=== PATIENT | male | born 1935 | race African-American/Black ===

== ENCOUNTER → 2018-03-05 | Outpatient (CLI) | payer OTHER, BC ==
[~2018-03-05] MED LIST: BETIMOL10 ML; CARVEDILOL3.125 MG PO; CO Q-1010 MG; COLACE100 MG PO; COQ-10100 MG; COREG PO; COUMADIN 2 MG TA2 M1 PO; COUMADIN 2.5MG2.5 M1 PO; DOXYCYCLINE 10100 MG PO; KEFLEX500 MG PO; LISINOPRIL5 MG PO; NEXIUM40 MG; NEXIUM40 MG PO; OMEGA-3 FISH1000 MG PO; OMEGA-31000 M1 PO; PERCOCET 5-3251 EACH PO; PLAVIX 75 MG TA75 MG PO; PRAVASTATIN SOD40 MG PO; SIMVASTATIN40 MG PO; TESSALON PERLE100 MG PO; TIMOLOL; ULTRAM 50MG TAB50 MG PO
== END ==
LOC: NUC 07:43
DX: I25.10 Atherosclerotic heart disease of native coronary artery without angina pectoris (principal); I25.5 Ischemic cardiomyopathy; E78.5 Hyperlipidemia, unspecified; I48.91 Unspecified atrial fibrillation

== ENCOUNTER 2020-10-14 12:30 | Inpatient (IN) | payer OTHER, BC ==
[~2020-10-14] VITALS: Ht 180.3 cm; Wt 71.6 kg
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
[2020-10-14 12:33] VITALS: BP 197/82
[2020-10-14 13:16] LABS: ABSOLUTE NEUTROPHILS 3.9 thou/uL (1.4-8.2); BASOPHILS 0.6 % (0.0-2.0); HEMATOCRIT 44.9 % (42.0-52.0); HEMOGLOBIN 14.8 gm/dL (14.0-18.0); LYMPHOCYTES 17.6 % (24.0-44.0); MCH 31.2 pg (26.0-34.0); MCHC 32.9 g/dL (28.0-37.0); MCV 94.8 fL (80.0-100.0); MONOCYTES 8.3 % (1.0-8.0); PLATELET COUNT 168 thou/uL (150-400); POLYS 72.5 % (36.0-66.0); RBC 4.73 mil/uL (4.50-6.00); WBC 5.4 thou/uL (4.0-11.0)
[2020-10-14 13:32] LABS: URINE BILIRUBIN NEGATIVE (Negative); URINE BLOOD TRACE (Negative); URINE CLARITY CLEAR; URINE COLOR YELLOW; URINE GLUCOSE-RANDOM* NEGATIVE (Negative); URINE KETONES NEGATIVE (Negative); URINE LEUKOCYTES-REFLEX NEGATIVE (Negative); URINE NITRITE-REFLEX NEGATIVE (Negative); URINE PROTEIN (DIPSTICK) NEGATIVE (Negative); URINE SPECIFIC GRAVITY 1.025 (1.005-1.035)
[2020-10-14 13:33] LABS: CALCIUM 8.8 mg/dL (8.5-10.1); CREATININE 1.1 mg/dL (0.7-1.3); POTASSIUM 3.1 mmol/L (3.5-5.1)
[2020-10-14 13:39] LABS: ALBUMIN 3.5 g/dL (3.4-5.0); TOTAL PROTEIN 6.9 g/dL (6.4-8.2)
[2020-10-14 20:52] VITALS: BP 128/81
[2020-10-14] MEDS ORDERED: BRIMONIDINE TART5 ML EA. EYE (21:11)
[2020-10-14] MEDS ORDERED: COZAAR 25 MG TA25 M1 PO (21:11)
[2020-10-14] MEDS ORDERED: ARICEPT10 MG PO (21:12)
[2020-10-14] MEDS ORDERED: ZOCOR 10 MG TAB10 M1 PO (21:12)
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
[2020-10-14 21:44] VITALS: BP 112/74
[2020-10-14 21:54] VITALS: BP 129/69
[2020-10-15 07:19] VITALS: BP 129/69
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
--- NOTE | 2020-10-15 14:54 | NUR ---
ASSUMED CARE OF PT AT 0700 THIS MORNING. PT WAS BROUGHT UP FROM ER AND IS VERY AGGRESSIVE TOWARDS STAFF AND FAMILY. PT HAS HX OF ALZEIMERS AND ONLY ALERT TO SELF AND OTHERWISE CONFUSED. PT IS IMPULSIVE AND IS TRYING TO GET OUT OF BED. ASSESSMENTS NOTED IN CHART AND OTHERWISE UNREMARKABLE. FALL PRECAUTIONS ARE IN PLACE, IV IN RT AC SL. CALL LIGHT AND OTHER NEEDS ARE WITHIN REACH. MEDS AND TX GIVEN NEEDED AND SCHEDULED. WILL MONITOR AND NOTE ANY CHANGES.
[2020-10-15 15:24] VITALS: BP 168/96
[2020-10-15 20:00] VITALS: BP 154/102
[2020-10-15 21:19] VITALS: BP 129/67
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
[2020-10-16 08:23] VITALS: BP 154/77
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
--- NOTE | 2020-10-16 13:12 | NUR ---
A/O X 1, Confused, forgetful. Has not been combative since the situation @ 0700. Family has been in all day which has help with his agitation. Nurse removed the restraints while family has been at bedside. Room air. Icaysha of B/BShayy Harris on tele. Right AC IV. Family has helped feed patient during meals. No pain noted at this time.
[2020-10-16 15:39] VITALS: BP 119/62
[2020-10-16 20:17] VITALS: BP 137/78
[2020-10-17 05:28] VITALS: BP 156/83
[2020-10-17 06:10] LABS: ABSOLUTE NEUTROPHILS 6.5 thou/uL (1.4-8.2); BASOPHILS 0.4 % (0.0-2.0); EOSINOPHILS 0.6 % (0.0-3.0); HEMATOCRIT 45.4 % (42.0-52.0); HEMOGLOBIN 15.6 gm/dL (14.0-18.0); LYMPHOCYTES 9.7 % (24.0-44.0); MCH 32.1 pg (26.0-34.0); MCHC 34.4 g/dL (28.0-37.0); MCV 93.5 fL (80.0-100.0); MONOCYTES 8.3 % (1.0-8.0); PLATELET COUNT 164 thou/uL (150-400); RBC 4.86 mil/uL (4.50-6.00); RDW 14.9 % (10.5-14.5)
[2020-10-17 06:27] LABS: ALBUMIN 3.2 g/dL (3.4-5.0); CALCIUM 8.6 mg/dL (8.5-10.1); TOTAL BILIRUBIN 1.4 mg/dL (0.2-1.0); TOTAL PROTEIN 6.7 g/dL (6.4-8.2)
--- NOTE | 2020-10-17 07:18 | NUR ---
PT MAKING POOR PROGRESS TOWARDS GOALS. PT FREQUENTLY ATTEMPTING TO GET OUT OF BED THROUGHOUT THE MORNING. PT AT TIMES BECOMES PHYSICALLY AGGRESSIVE TOWARDS STAFF. PT WILL RAISE A FIST OR TRY TO KICK AT STAFF WHILE ATTEMPTING TO PULL HIM BACK UP IN BED OR PUT HIS LEGS BACK INSIDE THE BED RAILS. UNABLE TO ORIENT PATIENT TO LOCATION, SITUATION OR DATE/TIME. X1 DOSE OF ATIVAN GIVEN OVER NIGHT.
[2020-10-17 07:34] VITALS: BP 147/92
[2020-10-17] MEDS ORDERED: DONEPEZIL HCL23 MG PO (10:42)
[2020-10-17] MEDS ORDERED: TRAZODONE HCL100 MG PO (10:43)
[2020-10-17] MEDS ORDERED: FLOMAX0.4 MG PO (10:43)
[2020-10-17] MEDS ORDERED: HALOPERIDOL5 MG/1 ML IM (10:44)
[2020-10-17] MEDS ORDERED: RISPERDAL 1 MG T1 MG PO (10:45)
[2020-10-17] MEDS ORDERED: LORAZEPAM 22 MG/1 ML IM (10:46)
[2020-10-17] MEDS ORDERED: PEPCID20 MG PO (10:47)
--- NOTE | 2020-10-17 13:16 | NUR ---
ASSUMED CARE OF PT AT 0700 THIS MORNING. PT IS A/OX1 AND IS CONFUSED AND COMBATIVE. PT IS IMPULSIVE AND TRIES TO GET OUT OF BED. ASSESSMENTS NOTED IN CHART. IV DC'D BY PT AND NO NEED TO REPLACE SINCE PT IS BEING XFERRED TO [facility]. PT HAS BEEN INCOHERENT WHEN ASKED QUESTIONS AND TRIES TO FIGHT WHEN TRYING TO MOVE. MEDS AND TX GIVEN NEEDED AND SCHEDULED. WILL MONITOR AND NOTE ANY CHANGES. PT IS GOING TO [facility] AND CHART BROUGHT UP.
--- NOTE | 2020-10-18 07:32 | EKG ---
[place] [address] [facility] [place] [address] ELECTROCARDIOGRAM REPORT Name: NEYDA ALVAREZ Room #: 436-P [facility] IN M.R.#: [id number] Admission: 10/14/20 Attend Phys: Raymond De La Cruz DO Discharge: 10/17/20 Date of : 35 Report #: [id number] [facility] ED Test Date: 2020-10-14 Test Time: 13:17:52 Pat Name: NEYDA ALVAREZ Department: Room: 436 Gender: M Control Cabinet Assembler: miryam : 1935 Requested By: Tony Hinkle Order Number: [id number] MD: Kaushik Mason Measurements Intervals [place] Rate: 61 P: 0 LA: 63 QRS: -76 QRSD: 193 T: 83 QT: 509 QTc: 513 Interpretive Statements Ventricular-paced rhythm No further analysis attempted due to paced rhythm Compared to ECG 02/07/2014 22:37:59 Sinus rhythm no longer present Electronically Signed On 10-18-2020 7:32:32 CDT by Kaushik Mason [email or web address] <ELECTRONICALLY SIGNED> By: Kaushik Mason MD, [facility] 10/18/20 0732 16 16 Kaushik Mason MD, FACC /EPI
== END 2020-10-17 13:57 | DRG 884 ==
LOC: ER 12:30 → EROBS 15:05 → 4S 21:29
PROVIDERS: Emergency Medicine; ADMIT Internal Medicine; ATTEND Internal Medicine
DX: F01.51 Vascular dementia, unspecified severity, with behavioral disturbance (principal); N40.0 Benign prostatic hyperplasia without lower urinary tract symptoms; K21.9 Gastro-esophageal reflux disease without esophagitis; I10 Essential (primary) hypertension; E78.5 Hyperlipidemia, unspecified; I25.5 Ischemic cardiomyopathy; M51.36 Other intervertebral disc degeneration, lumbar region; Z66 Do not resuscitate; F91.9 Conduct disorder, unspecified; I48.0 Paroxysmal atrial fibrillation; Z20.822 Contact with and (suspected) exposure to COVID-19; Z95.810 Presence of automatic (implantable) cardiac defibrillator; Z88.6 Allergy status to analgesic agent; Z95.5 Presence of coronary angioplasty implant and graft
CPT/HCPCS: 10100

== ENCOUNTER 2020-10-17 14:26 | Inpatient (IN) | payer OTHER, BC ==
[~2020-10-17] VITALS: Ht 177.8 cm; Wt 68.6 kg
[~2020-10-17 14:26] MED LIST changes: +ARICEPT10 MG PO; +BRIMONIDINE TART5 ML EA. EYE; +COZAAR 25 MG TA25 M1 PO; +DONEPEZIL HCL23 MG PO; +FLOMAX0.4 MG PO; +HALOPERIDOL5 MG/1 ML IM; +LORAZEPAM 22 MG/1 ML IM; +PEPCID20 MG PO; +RISPERDAL 1 MG T1 MG PO; +TRAZODONE HCL100 MG PO; +ZOCOR 10 MG TAB10 M1 PO
[2020-10-17 16:44] LABS: CHOLESTEROL 165 mg/dL (<200); HDL CHOLESTEROL 62 mg/dL (>40); LDL CHOLESTEROL 94 mg/dL (<100); TC:HDL 2.7 Ratio (Not establshd); TRIGLYCERIDE 48 mg/dL (<150); VLDL 10 mg/dL (<40)
[2020-10-17 16:57] VITALS: BP 170/96
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
[2020-10-17 19:37] VITALS: BP 154/95
--- NOTE | 2020-10-17 19:57 | NUR ---
Assumed care on 10/17/20 @ 1900, seated in a yeny chair in the day room, eyes closed and calm, opens eyes to voice and allows assessment, HRRR Lung sounds CTA, ABD N x 4Q. Oriented to self only. Calm and cooperative at this time, will continue to monitor for safety and comfort, chair alarm in place.
[2020-10-18 02:05] LABS: GLYCOHEMOGLOBIN (HGB A1C) 5.4 % (4.8-5.6)
[2020-10-18 09:10] VITALS: BP 113/56
--- NOTE | 2020-10-18 14:52 | NUR ---
Assumed pt care at 0700. pt was oriented, to himself. Assessments completed, vss. Denies si/hi. No c/o pain at this time. Active bowel sounds. Took meds crushed in yogurt, no difficulty noted. Ambulates with a Claudia chair. Pt is x1-2 assist with transfers. Pt dropped off DPOA paper work. Staff assisted pt with feeding. PT GET OCCASIONALLY IRRITABLE. Pt was redirected. At this time pt is in the day room. Will continue to monitor.
[2020-10-18 20:07] VITALS: BP 160/52
--- NOTE | 2020-10-19 02:11 | NUR ---
PATIENT RESTING IN ELISABET CHAIR IN DAY ROOM UPON BEGINNING OF SHIFT. PATIENT IS AWAKE AND ALERT TO SELF ONLY. PATIET IS ABLE TO SAY YES AND NO TO SIMPLE QUESTIONS. PATIENT COMPLIANT WITH MEDICATIONS AND IS COOPERATIVE AT THIS TIME. THE SHIFT PROGRESSES PATIENT BEGINS TO COUGH HEAVILY. AT THIS TIME PATENT BREATHING IS REGULAR BUT THERE IS AN AUDIBLE CRACKLED IN THE UPPSER PORTION OF THE RESPIRATORY TRACT. AT THIS TIME PATIENT DOES NOT AWAKE WITH VERBAL COMMANDS. PRESSED AGAINST PATIENTS CHEST AND HE AWAKENS. O2 SAT IS 93% AT THIS TIME. PATIENT WAS ADMINISTERED PRN MUCINEX PER PROVIDER ORDER. WHEN GETTING PATIENT IN BED PICTURE WAS TAKEN OF PATIENTS BACK. NOTED SMALL SPHERICAL SHAPED BLIMISH ON LOWER RIGHT SIDE OF BACK. NO BLEEDING NOTED AT THIS TIME. WILL CONTINUE TO MONITOR.
[2020-10-19 10:12] VITALS: BP 125/50
--- NOTE | 2020-10-19 12:10 | NUR ---
PATIENT OBSERVED ON THE FLOOR BESIDE HIS BED BY DR. SEVILLA AT ABOUT 0945HRS THIS MORNING. PATIENT ASSISTED UP IN BED BY THIS METAL ROOM DENTAL TECHNICIAN AND DR. NUNEZ, COMPLETE BODY ASSESSMENT DONE, LACERATION NOTED TO RIGHT EYEBROW, AREA CLEANED, DR. SEVILLA APPLIED TWO STERI STRIPS. FAMILY -(JULIETH ALVAREZ) NOTIFIED. DR. GARDNER NOTIFIED BY DR. SEVILLA, THIS NURSE PRESENT AT TIME OF NOTIFICATION. PATIENT REMAIN WITH INCREASE CONFUSION, NO AGITATION OR AGGRESSIVE BEHAVIOR NOTED. PATIENT IS CURRENTLY IN GERICHAIR, EATING LUNCH. PATIENT CONTINUE TO HAVE MOIST INTERMITTENT COUGH. NO SIGN OF ACUTE DISTRESS NOTED AT THIS TIME, WILL MONITOR FOR SAFETY.
--- NOTE | 2020-10-19 15:54 | NUR ---
Oliver faxed referral to the following [facility]
[2020-10-19 18:53] VITALS: BP 130/45
[2020-10-19 19:13] VITALS: BP 137/67
--- NOTE | 2020-10-19 21:49 | NUR ---
PATIENT HAS BEEN SITTING UP IN ELISABET CHAIR AT A TABLE SINCE THIS NURSE ASSUMED CARE OF PATIENT AT 1900. PATIENT IS A/OX1. HE DENIES PAIN. NO SIGNS OF SI/HI/HALLUCINATIONS. PATIENT HAS BEEN CALM AND COOPERATIVE. CHAIR ALARM IS ON AND IN PLACE. YELLOW NONSKID SOCKS ON BILATERAL FEET. PATIENT IS CURRENTLY RESTING WITH EYES CLOSED IN ELISABET RECLINER AT A TABLE. ROUTINE ROUNDS TO ASSESS SAFETY AND STATUS OF PATIENT. PATIENT HAS STERI STRIPS APPLIED TO LACERATION ABOVE RIGHT EYEBROW DRY AND INTACT. CONTINUING TO MONITOR.
[2020-10-20 07:30] VITALS: BP 144/53
[2020-10-20] MEDS ORDERED: ACETAMINOPHEN325 M1 PO (07:36)
[2020-10-20] MEDS ORDERED: RISPERDAL 1 MG T1 MG PO (07:36)
--- NOTE | 2020-10-20 09:29 | NUR ---
Alert and orientated to name only. Calm, cooperative and compliant. Denies SI/HI. Breath sounds clear. Reg HR auscultated. Color pink with brisk capillary refill and palpable peripheral pulses. Dark yellow urine and small brown, soft stool per brief. Active bowel sounds over soft, rounded abdomen. Took meds crushed in thickened orange juice. Drinking independently and took several bites of breakfast. Currently sitting in dining room with peers without s/o distress.
[2020-10-20 13:28] LABS: ABSOLUTE NEUTROPHILS 6.4 thou/uL (1.4-8.2); BASOPHILS 0.2 % (0.0-2.0); HEMATOCRIT 46.1 % (42.0-52.0); HEMOGLOBIN 15.1 gm/dL (14.0-18.0); LYMPHOCYTES 4.5 % (24.0-44.0); MCH 31.2 pg (26.0-34.0); MCHC 32.7 g/dL (28.0-37.0); MCV 95.3 fL (80.0-100.0); MONOCYTES 6.1 % (1.0-8.0); PLATELET COUNT 188 thou/uL (150-400); POLYS 89.2 % (36.0-66.0); RBC 4.83 mil/uL (4.50-6.00); RDW 14.8 % (10.5-14.5); WBC 7.1 thou/uL (4.0-11.0)
[2020-10-20 13:47] LABS: CALCIUM 9.3 mg/dL (8.5-10.1); CREATININE 1.6 mg/dL (0.7-1.3); POTASSIUM 3.9 mmol/L (3.5-5.1)
--- NOTE | 2020-10-20 16:44 | NUR ---
DOLORES and Dr. Birch participated in a phone call with the Pt's /DPOA, Maryellen and daughter in law, Tania Hodges. Update was given on skilled referrals. Family informed that Pt can be dischrged home with home health. Family expressed concerns about the Pt's behaviors. Dr. Birch went over medications that have been started to assist the Pt with behaviors. DOLORES and Dr. Birch provided education on home health services, insurance requirements for SNF, and Medicaid. DOLORES informed the family that if they wanted to seek LTC placement the Pt needed Medicaid. At this time Pt is not Medicaid pending. A referral has been sent to [facility]. Maryellen stated she has not recieved a phone call concerning Medicaid. They family was informed that if Pt returns home and begins to have uncontrolled behviors they can take him to the nearest ER for assistance and yeny psyh placement again if necessay.
--- NOTE | 2020-10-20 17:00 | NUR ---
SW sent a referral to [place] for SNF. SW team will follow up
[2020-10-20 19:43] VITALS: BP 129/53
--- NOTE | 2020-10-21 05:49 | NUR ---
10-20-20 CARE TRANSFERRED 0 OBSERVED PT SITTING IN RECLINER IN DINING ROOM. LATER PT AAOX1, VSS, RR EVEN AND NONLABORED ON RA, PT STERI STRIPS /D/I ABOVE RT EYE. PT DENIES SI/HI AND PAIN. PT WAS CALM AND COOPEATIVE AND VERY INTERACTIVE BUT NOTED LOOSE ASSOCIATION. LATER DURING CARES RECEIVED REPORT FROM AERONAUTICAL ENGINEERING PROFESSOR THAT PT FUSSY DURING CARES. PT WILL CONTINUE TO BE MONITOR PER [facility] PROTOCOL.
[2020-10-21 08:30] VITALS: BP 128/53
--- NOTE | 2020-10-21 10:07 | NUR ---
Irritable this AM with confused speech. Repeatedly stating that he is not a doctor and that staff lie. Attempting to hit and kick with assessment. Dr. De La Cruz here and attemted exam. Brought out to dining room and given orange juice which he drank. Proceeded to eat 100% of breakfast and supplement with assistance. Then he became calm and cooperative agreeing to take meds and vital signs. Alert and orientated X1. Denies SI/HI. Breath sounds clear. Reg HR auscultated. Color pink with brisk capillary refill and palpable peripheral pulses. Brief dry. Active bowel sounds over soft, rounded abdomen. Area between buttocks slightly excoriated, cleaned and zpaste applied. Steristrips above R eye dry and intact without s/o infection/drg. Very cooperative with toileting after breakfast, able to stand and bear wt independently. Currently sitting in dining room without s/o distress. Tolerated Covid swab per L nare without difficulty, sent to lab.
--- NOTE | 2020-10-21 10:55 | NUR ---
10-21-2020--11:00 AM--call to patients (Maryellen [phone]--Advised (granddaughter also front desk coordinator) patient has been retestedd for COVID and as long as he is still negative he will be moved to a medical floor so a deep cleaning can be done on the unit. If he continues to be covid negative he will be moved back to this unit and his SW will continue to attempt to find him an appropriate placement. Call returned by granddaughter, Sheryl ) to provide 's cell phone number in case she can't be reached at the above number. Maryellen----([phone]).
[2020-10-21 17:26] VITALS: BP 143/67
[2020-10-21 19:40] VITALS: BP 139/52
[2020-10-21 22:30] VITALS: BP 116/87
[2020-10-21 23:38] LABS: ABSOLUTE NEUTROPHILS 6.4 thou/uL (1.4-8.2); BASOPHILS 0.1 % (0.0-2.0); EOSINOPHILS 0.1 % (0.0-3.0); HEMATOCRIT 40.8 % (42.0-52.0); HEMOGLOBIN 13.6 gm/dL (14.0-18.0); LYMPHOCYTES 1.8 % (24.0-44.0); MCH 31.5 pg (26.0-34.0); MCHC 33.3 g/dL (28.0-37.0); MCV 94.6 fL (80.0-100.0); PLATELET COUNT 168 thou/uL (150-400); RBC 4.32 mil/uL (4.50-6.00); RDW 14.4 % (10.5-14.5); WBC 7.1 thou/uL (4.0-11.0)
[2020-10-21 23:45] LABS: CALCIUM 8.6 mg/dL (8.5-10.1); CREATININE 1.2 mg/dL (0.7-1.3); POTASSIUM 3.8 mmol/L (3.5-5.1)
--- NOTE | 2020-10-22 03:44 | NUR ---
AT ONSET OF SHIFT PT WAS RESTING IN BED. THIS SHIFT PT WAS LETHARGIC. PT WAS NOT COMBATIVE WITH CARE THIS SHIFT, AND WAS COOPERATIVE WITH MEDS, VITAL SIGNS, AND TOILETING. PT POSITIVE FOR COVID AND EXHIBITING SYMPTOMS; COUGH, ELEVATED TEMP, AND FATIGUE. PT DID NOT SPEAK MUCH THIS SHIFT. PT DID RESPOND TO QUESTIONS AND WAS MORE ALERT WHEN RECIEVING CARE. D-DIMER AT 1225 WAS ELEVATED. RN PAGED NETWORK CONTRACT MANAGER DR. FORRESTER AND RECIEVED ORDERS (PLEASE SEE ORDERS AND EMAR.) PT RECIEVED FIRST DOST OF REMDESIVIR. DEPAKOTE WAS DISCONTINUED PER DR. SEVILLA'S REQUEST. IV WAS PLACED IN PT'S LEFT FOREARM. PT DID DISCONNECT IV ONCE BY GETTING OUT OF BED, BUT IV SITE REMAINED INTACT AND IV RE-STARTED. VITAL SIGNS REMAINED STABLE THROUGHOUT NIGHT. BED WAS PLACED IN LOW POSITION WITH BED ALARM ON. ALL SIDE RAILS PLACED UP. ROUTINE ROUNDS COMPLETED. PT WEARING YELLOW NON-SLIP SOCKS. RECEIVED PRN TYLENOL FOR ELEVATED TEMPERATURE.
[2020-10-22 06:29] LABS: ABSOLUTE NEUTROPHILS 6.3 thou/uL (1.4-8.2); EOSINOPHILS 0.1 % (0.0-3.0); HEMATOCRIT 41.4 % (42.0-52.0); HEMOGLOBIN 13.6 gm/dL (14.0-18.0); LYMPHOCYTES 3.2 % (24.0-44.0); MCH 31.2 pg (26.0-34.0); MCHC 32.9 g/dL (28.0-37.0); MCV 95.1 fL (80.0-100.0); PLATELET COUNT 171 thou/uL (150-400); POLYS 89.7 % (36.0-66.0); RBC 4.36 mil/uL (4.50-6.00); RDW 15.2 % (10.5-14.5); WBC 7.1 thou/uL (4.0-11.0)
[2020-10-22 06:37] LABS: DIRECT BILIRUBIN 0.4 mg/dL (<0.1-0.2); PHOSPHORUS 3.1 mg/dL (2.5-4.9)
--- NOTE | 2020-10-22 06:38 | NUR ---
Slept 6.8 hours overnight.
[2020-10-22 06:50] LABS: ALBUMIN 2.7 g/dL (3.4-5.0); CALCIUM 8.6 mg/dL (8.5-10.1); CREATININE 1.2 mg/dL (0.7-1.3); POTASSIUM 4.6 mmol/L (3.5-5.1); TOTAL BILIRUBIN 0.7 mg/dL (0.2-1.0); TOTAL PROTEIN 5.9 g/dL (6.4-8.2)
[2020-10-22 08:02] VITALS: BP 140/70
--- NOTE | 2020-10-22 11:37 | EKG ---
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
--- NOTE | 2020-10-22 14:54 | NUR ---
RESUMMED CARE FROM OVERNIGHT SHIFT THIS AM, PATIENT ALERT TO SELF ONLY. PATIENT IS UNABLE TO TELL ME ABOUT SI/HI/AH/VH AT PRESENT DUE TO COGNITIVE DO. PATIENTS ABDOMEN SOFT BOWL SOUNDS PRESENT PATIENTS LUNGS MILD RATTLES UPPER LOBES O LUNGS. PATIENT PULLED IV OUT AND WE HAD TO REPLACE THE IV IN LEFT FOEARM. PATIENT KEEPS TRYING TO GET UP OUT OF BED SO WE HAVE TO MONITOR HIM CLOSELY. PATIENT ALERT CONFUSED ASKS ABOUT HIS AT TIMES PATIENT TAKES MEDICAION CRUSHED IN PUDDING. WILL CONINUE TO MONITOR PATIENT FOR SAFETY AND BEHAVIORS.
[2020-10-22 19:54] VITALS: BP 115/45
[2020-10-23 00:39] VITALS: BP 115/45
--- NOTE | 2020-10-23 05:03 | HC ---
[facility] [place] [address] CONSULTATION Name: NEYDA ALVAREZ Room #: 221-P [facility] IN M.R.#: [id number] Admission: 10/17/20 Attend Phys: Siri Montes De Oca MD Discharge: Date of : 35 Report #: [id number] THIS REPORT FOR: cc: Raymond De La Cruz,Marcellus Oconnor MD ~ DATE OF SERVICE: 10/22/2020 INFECTIOUS DISEASE CONSULTATION ATTENDING PHYSICIAN: Dr. Ramos. REASON FOR EVALUATION: COVID-19 infection. HISTORY OF PRESENT ILLNESS: Chart reviewed and the patient examined. This is an 85-year-old gentleman with dementia that has been complicated by behavioral disturbances and agitation. He had been in the Geriatric Psychiatry Unit. He, however, was found to be positive for coronavirus and transferred to the COVID unit. At this point, he is maintained off supplemental oxygen. Chest x-ray does show patchy bilateral interstitial opacities. D-dimer was elevated at 3.39. He was noted to have low-grade temperature elevation to 100.9, this morning 97.4. It is difficult to ascertain any details of his history due to his profound dementia. He seems not in significant pain. He was started on remdesivir. ALLERGIES: LISTED TO ASPIRIN. CURRENT MEDICATIONS: Include enoxaparin, Haldol, trazodone, famotidine, losartan, tamsulosin, guaifenesin, dorzolamide, p.r.n. analgesics, antiemetics, remdesivir. PAST MEDICAL HISTORY: As described above, also has known vasculopathy, coronary artery disease, AFib, prostatic hypertrophy. SOCIAL HISTORY: Nonsmoker. No illicit drug use. Former ethanol. FAMILY HISTORY: Noncontributory. REVIEW OF SYSTEMS: Unobtainable. PHYSICAL EXAMINATION: GENERAL: He is chronically ill appearing. He is relatively calm at this point. He does arouse. VITAL SIGNS: Temperature 97.4, pulse 62, respirations 18, blood pressure 140/70. SKIN: Warm, dry, no rashes. [facility] [address] [address] CONSULTATION Name: NEYDA ALVAREZ Room #: 221-P [facility] IN M.R.#: [id number] Admission: 10/17/20 Attend Phys: Siri Montes De Oca MD Discharge: Date of : 35 Report #: [id number] HEENT: Normocephalic. Extraocular muscles intact. NECK: Supple. LUNGS: Few scattered coarse breath sounds. HEART: Irregular, borderline bradycardic. I do not appreciate a murmur. ABDOMEN: Soft, nontender. EXTREMITIES: No cyanosis. GENITOURINARY AND RECTAL: Deferred. LABORATORY DATA: From this morning, sodium 151, potassium 4.6, chloride 113, bicarbonate is 30, anion gap of 8, BUN and creatinine 32 and 1.2. AST of 62, ALT of 47. Albumin 2.7, total protein 5.9. CBC: White count of 7.1, H and H 13.6 and 41.4, platelets of 171. D-dimer 3.39. Chest x-ray as described above. ASSESSMENT AND PLAN: COVID-19 infection, complicated by pneumonitis. At this point, he is not requiring supplemental oxygen, although he is certainly at risk for deterioration. I think it is reasonable to add corticosteroids and limit his access to p.o.'s with vitamins, which may be difficult. Continue remdesivir. We will see how he does clinically. <ELECTRONICALLY SIGNED> By: Marcellus Rojas MD 10/23/20 0503 [id number] 0815 Marcellus Rojas MD /nt
--- NOTE | 2020-10-23 06:34 | NUR ---
AT ONSET OF SHIFT PT WAS RESTING IN BED. PT WAS CALM AND COOPERATIVE WITH CARE DURING SHIFT UNTIL 0320. PT WAS COMPLIANT WITH HS MEDICATIONS AND IV MEDICATIONS. PT WAS STUCK 5 TIMES TO GET AN IV SITE. PT SLEPT DURING IV MED ADMINSTRATION. AT APPROX 0320 PT BECAME DISORGANIZED, AGITATED, THREATENING AND COMBATIVE. PT WALKED TO RESTROOM BY HIMSELF WITH STAFF ON STANDBY ASSIST. PT WASHED HIS FACE AND BRUSHED HIS TEETH, BUT THEN CLEANED THE BATHROOM INCLUDING PUTTING HIS BARE HANDS IN THE TOILET WATER. PT WAS VERBALLY THREATENING WHEN STAFF ATTEMPTED TO REDIRECT. PT THEN TORE OUT HIS IV WHILE STAFF WAS TRYING TO HELP HIM REMOVE IT. PT SWUNG AT STAFF AND TRIED TO KICK STAFF. RN ADMINISTERED IM 4MG HALDOL AT 0435. PT CONTINUED TO ESCALATE. RN CALLED PEDIATRIC LPN DR. MONDRAGON AND RECEIVED ORDERS FOR IM 1MG ATIVAN AND 25MG BENADRYL, ADMINISTERED AT 0615. STAFF ON STANDBY WITH PT. PT WAS WEARING YELLOW NON-SLIP SOCKS WHEN AMBULATING, BED WAS PLACED IN LOWEST POSITION, BED ALRM ON.
[2020-10-23 07:52] VITALS: BP 140/74
--- NOTE | 2020-10-23 14:46 | NUR ---
Alert and orientated to name only. Restless most of day with exception of approximately 1 hr. Denies SI/HI. At approximately 1230 nursing hatchery supervisor walked by and noticied pt on floor on far side of bed. Entered room and pt was sitting on floor without s/o distress. Attempted to assist him to bed several times and he repeatedly got down on floor. Repeatedly stating he did not need help and got back into bed with minimal assistance.
[2020-10-23 19:45] VITALS: BP 144/68
[2020-10-23 20:30] VITALS: BP 144/68
[2020-10-23 23:23] LABS: ABSOLUTE NEUTROPHILS 4.7 thou/uL (1.4-8.2); BASOPHILS 0.1 % (0.0-2.0); HEMATOCRIT 42.2 % (42.0-52.0); HEMOGLOBIN 14.3 gm/dL (14.0-18.0); MCH 31.9 pg (26.0-34.0); MCHC 33.9 g/dL (28.0-37.0); MCV 94.1 fL (80.0-100.0); MONOCYTES 8.2 % (1.0-8.0); PLATELET COUNT 192 thou/uL (150-400); POLYS 84.7 % (36.0-66.0); RBC 4.48 mil/uL (4.50-6.00); RDW 14.9 % (10.5-14.5); WBC 5.6 thou/uL (4.0-11.0)
[2020-10-23 23:43] LABS: ALBUMIN 2.7 g/dL (3.4-5.0); CALCIUM 8.5 mg/dL (8.5-10.1); CREATININE 0.8 mg/dL (0.7-1.3); DIRECT BILIRUBIN 0.2 mg/dL (<0.1-0.2); PHOSPHORUS 3.5 mg/dL (2.5-4.9); POTASSIUM 4.2 mmol/L (3.5-5.1); TOTAL BILIRUBIN 0.5 mg/dL (0.2-1.0); TOTAL PROTEIN 6.6 g/dL (6.4-8.2)
--- NOTE | 2020-10-24 04:12 | NUR ---
Assumed care on 10/23/20 @ 1900, seated in yeny chair with 1:1 observer at chair side. Continuously restless and trying to take IV out, repeatedly standing without regard for personal safety. Patient's 1:1 sitter has to continuously hold his hand and verbally remind him to sit down. P.O. Thorazine 25mg provided, although no noticable effect noted. IV Antiviral began @ 21:00, new order began @ 21:55 for Thorazine 25IM and [id number] IM. Administered @ 22:20. Slight effect of calming agitation. After about 45 minutes later, became drowsy and transferred to bed. Incontinent care provided. Has been in bed thru out the NOC with eyes closed but moves legs quite often. Bed in low position with bed alarm set, will continue to monitor continually with 1:1 sitter @ bedside.
[2020-10-24 12:02] VITALS: BP 155/91
--- NOTE | 2020-10-24 13:27 | NUR ---
RESUMMED CARE FROM OVENIGHT SHIFT HIS AM, PATIENT IN ROOM LYING QUIET IN BED. PATIENT CALM COOPERATIVE PATIENT HAS NOT DISPLAYED ANY BEHAVIORS AT PRESENT. PATIENTS ABDOMEN SOFT BOWEL SOUNDS PRESENT PATIENTS LUBGS CLEAR. PATIENT IS ALERT TO SELF ONLY UNABLE TO TELL ME ABOUT SI/HI/AH/VH AT PRESENT. PATIENT HAS DECLINED SINCE YESTERDAY NOT INTERACTNG WITH STAFF WILL CONINUE TO MONIOR PATIENT FOR SAFEY AND BEHAVIORS.
[2020-10-24 14:53] LABS: ABSOLUTE NEUTROPHILS 5.2 thou/uL (1.4-8.2); BASOPHILS 0.1 % (0.0-2.0); HEMATOCRIT 44.8 % (42.0-52.0); HEMOGLOBIN 14.7 gm/dL (14.0-18.0); LYMPHOCYTES 8.6 % (24.0-44.0); MCH 31.2 pg (26.0-34.0); MCHC 32.8 g/dL (28.0-37.0); MCV 95.1 fL (80.0-100.0); MONOCYTES 4.9 % (1.0-8.0); PLATELET COUNT 208 thou/uL (150-400); POLYS 86.4 % (36.0-66.0); RBC 4.71 mil/uL (4.50-6.00); RDW 14.9 % (10.5-14.5)
[2020-10-24 15:11] LABS: ALBUMIN 2.7 g/dL (3.4-5.0); DIRECT BILIRUBIN 0.2 mg/dL (<0.1-0.2); PHOSPHORUS 3.8 mg/dL (2.6-4.7); TOTAL BILIRUBIN 0.4 mg/dL (0.2-1.0)
[2020-10-24 15:32] LABS: POTASSIUM 5.4 mmol/L (3.5-5.1)
--- NOTE | 2020-10-24 21:57 | NUR ---
AT ONSET OF SHIFT PT WAS ON 1:[address] PT WAS AMBULATING IN ROOM. PT LOWERED HIMSELF TO THE GROUND. THIS WAS WITNESSED BY ROAD WORKER AND PATIENT DID NOT HIT HIS HEAD AND WAS NOT INJURED. PT WAS ASSISTED INTO BED. PT RESTED IN BED CALMLY, BUT WHEN RN ATTEMPTED CARES PT BECAME COMBATIVE. RN ATTEMPTED ADMINISTEREING PO MEDS CRUSHED IN PUDDING AND PT WOULD NOT OPEN HIS MOUTH. PT WOULD NOT OPEN HIS EYES TO RECEIVE EYE DROPS. PT WOULD NOT TALK TO RN. RN ATTEMPTED TO FLUSH IV SITE ON LEFT AC, BUT PT GRABBED RN'S HAND AND THE FLUSH WHILE CONNECTED TO THE IV AND ATTEMPTED TO PULL OUT IV. RN DISCONNECTED FLUSH AND PLACED PT'S HANDS ON HIS CHEST. PT ATTEMPTED TO GRAB AND SCRATCH RN. RN LEFT ROOM TO ALLOW PATIENT TO CALM DOWN. PT REMAINED IN BED AFTER RN LEFT. RN WAS UNABLE TO ADMINISTER ANY MEDICATION OR COMPLETE ASSESSMENT. RN HANDED OVER CARE TO OPTICAL MANUFACTURING TECHNICIAN CHERIE AT 2125.
--- NOTE | 2020-10-25 02:12 | NUR ---
10-24-20 CARE TRANSFERRED 2124 OBSERVED PT RESTING IN BED WITH EYES CLOSED. WHEN FIRST APPROACH PT GRABBED RN HAND, BUT RELEASED. PT AAOX1, VSS, RR EVEN AND NONLABORED ON RA, PT HAS IV L. FORARM C/D/I 10ML SALINE, STARTED MEDICATION PER ORDERS AT 250ML WITH A 30ML NS FLUSH. PT HAD NO DIFFICULTIES TAKING MEDICATION CRUSHED IN PUDDING.
--- NOTE | 2020-10-25 13:09 | NUR ---
HAS REQUIRED CONSTANT SUPERVISION SO FAR THIS SHIFT D/T EXTREME RESTLESSNESS,IMPULSIVITY AND REFUSAL/INABILITY TO FOLLOW VERBAL COMMANDS. GETTING UP OUT OF BED AND CHAIR MULTIPLE TIMES-AND STAGGERING IN ROOM-WEAVING AND EXTREMEMLY UNSTEADY YET WHEN ASKED TO LET STAFF ASSIST STATES WITH RAISED VOICE "IM SICK OF YOU-IM SICK OF ALL THIS SHIT AND THRE A TUBE OF BODY LOTIONAT NURSE.APPEARS TO HAVE CONSTANT MOVEMENT MOVING FEET,TAPPING FINGERS JIGGLING LEG-TALKING [id number] RAPID,OFTEN TIMES INCOHERENT
[2020-10-25 13:36] LABS: ALBUMIN 2.7 g/dL (3.4-5.0); CALCIUM 8.6 mg/dL (8.5-10.1); CREATININE 0.9 mg/dL (0.7-1.3); DIRECT BILIRUBIN 0.2 mg/dL (<0.1-0.2); PHOSPHORUS 3.3 mg/dL (2.6-4.7); TOTAL BILIRUBIN 0.4 mg/dL (0.2-1.0); TOTAL PROTEIN 6.6 g/dL (6.4-8.2)
[2020-10-25 13:40] LABS: POTASSIUM 3.9 mmol/L (3.5-5.1)
[2020-10-25 16:29] VITALS: BP 118/56
--- NOTE | 2020-10-25 18:51 | NUR ---
LATE ENTRY FOR O830-"O" RECEIVED AT 0830 FOR IV BOLUS 500CC NS WHICH WAS HUNG AT [facility] 0900-AFTER 400 CC HAD INFUSED MID PM PT BECAME AGITATED-COMBATIVE WITH STAFF AND REFUSING TO SIT IN CHAIR-PULLED IV OUT STATING "JEY HAD THAT TOO LONG-NO MORE I SAID" DR FLOWER WITH INFECTIOUS DISEASE ROUNDING ON UNIT AT TIME AND STATES HE FEELS PTDOES NOT REQUIRE ADDITIONAL IV MEDICATIONS IS HAVING NO CLINICAL SYMPTOMS AT THIS TIME AND WILL TRANSITION STERIODS TO PO IV STERIODS ARE INCREASING AGITATION,RESTLESNESS AND ARE NOT NEEDED AT THIS TIME. DID ATTEMPT TO RESTART IV X2 BUT REMAINS AGITATION AND UNCOOPERATIVE STATING "ILL TAKE THAT ONE OUT TOO"RECEIVED HALDOL 7.5 MG IM AT 1400 FOR PHYSICAL AGRESSION WITH ASSISTANCE OF 2 SECURITY GUARDS-LITTLE RESPONSE NOTED AFTER 20 MINUTES AND ATIVAN 1MG GIVEN IM AFTER CALL TO DR SEVILLA-SECURITY WITH PT ADDITIONL 20 MINUTES PRIOR TO PT CALMING ENOUGH TO FOLLOW VERBAL COMMANDS FROM STAFF
[2020-10-25 20:05] VITALS: BP 126/84
--- NOTE | 2020-10-26 04:50 | NUR ---
10-25-20 CARE TRANSFERRED 1899 OBSERVED PT SITTING IN RECLINER WATCHING TV. LATER PT DROWSY, A/OX1, VSS, RR EVEN AND NONLABORED ON RA. PT DENIES PAIN AND SI/HI. LATER NOTED PT BEING RESTLESS AND PULLING AT CHAIR ALARM WAS DESTROYED. PT WAS ASSISTED TO BATHROOM, PT NEEDED X2 ASSISTS R/T WEAK LE, NOTED PT HAVING REDNESS ON BUTOCKS AREA WITH SKIN BREAK DOWN, CLEANED SOAP AND WATER; BARRIER CREAM APPLIED. PT WAS ASSISTED TO BED, LOWEST POSITION, LOCKED AND ALARM ON. PT HAS BEEN COOPERATIVE DURING CARES AND REDIRECTION. PT WILL CONTINUE TO BE MONITOR PER [facility] PROTOCOL.
[2020-10-26 06:35] LABS: ALBUMIN 2.7 g/dL (3.4-5.0); CALCIUM 8.6 mg/dL (8.5-10.1); CREATININE 0.9 mg/dL (0.7-1.3); DIRECT BILIRUBIN 0.2 mg/dL (<0.1-0.2); POTASSIUM 3.9 mmol/L (3.5-5.1); TOTAL BILIRUBIN 0.6 mg/dL (0.2-1.0); TOTAL PROTEIN 6.4 g/dL (6.4-8.2)
--- NOTE | 2020-10-26 12:16 | NUR ---
PATIENT ASSUMED AT 0700, PATIENT IN BED SLEEPING WITH EYES CLOSED, STAFF TRY TO GET PATIENT V/S HE REFUSED, GOT AGITATED, SECURITY WAS CALLED TO HELP GET HIM CHANGED, PATIENT REFUSED BREAKFAST AND MEDICATION, GOT HIM ON THE RECLINER CHAIR, BREATH SOUND CLEAR, BOWEL SOUND ACTIVE, INCONTINENT OF BOWEL AND BLADDER, HE IS MAX ASSIST, FALL PRECAUTION IN PLACE, NO SI/HI OBSERVED, WILL CONTINUE TO MONITOR PATIENT FOR SAFETY AND BEHAVIOR
--- NOTE | 2020-10-26 16:52 | NUR ---
DOLORES and Dr. Birch participated in a phone call with the Pt's family. On the call was Ritu Malhotra Candace, Lee, and Nitesh. Medications and treatment plan were discussed. Dr. Birch gave recommendation for 24 hour supervision. The family continues to want the Pt to return home. They would like a SNF placement if possible. DOLORES and Dr. Birch informed that facilities have denied the Pt due to cognitive impairment and this may will be a barrier while looking for a SNF. the family stated if Pt could not get into a SNF they are willing for Pt to come home and care will be provided in the home. There were no other questions or concerns at this time. DOLORES will continue to follow
[2020-10-26 19:07] VITALS: BP 124/80
[2020-10-26 20:00] VITALS: BP 124/80
--- NOTE | 2020-10-27 02:18 | NUR ---
AT ONSET OF SHIFT PT WAS RESTING IN BED. THIS SHIFT PT WAS LETHARGIC WITH CONSTRICTED AFFECT. RN ATTEMPTED TO ADMINISTER PT'S MEDS CRUSHED IN PUDDING. PT STATED "NO, NO, NO" WHENEVER NURSE PLACED SPOON TO PT'S MOUTH. PT ALSO WOULD NOT OPEN HIS EYES FOR HIS EYE DROPS. LATER IN THE EVENING RN ADMINISTERED 7.5MG IM HALDOL PER ORDERS SINCE PT REFUSED PO HALDOL. RN ADMINISTERED SUBQ LOVENOX. PT DID NOT RECIEVE PO DEPAKOTE. PT ATTEMPTED TO GET OUT OF BED ON HIS SEVERAL TIMES. PT IS UNSTEADY ON FEET AND IS A TWO PERSON ASSIST WHEN AMBULATING. PT REMAINS INCONTINENT OF URINE AND STOOL; PLACED IN BRIEFS. PT'S BED IS PLACED IN LOWEST POSITION, PT PLACED IN YELLOW NON-SOCKS, BED ALARM ON AND SIDE RAILS RAISED. PT WAS COOPERATIVE WITH BEGINNING OF SHIFT VITAL SIGNS; RESULTS WERE WITHIN NORMAL LIMITS. PT REFUSED HEAD TO TOE ASSESSMENT. PT WAS IRRITABLE AND UNCOOPERATIVE.
[2020-10-27 08:54] VITALS: BP 140/55
--- NOTE | 2020-10-27 13:22 | NUR ---
PATIENT CARE ASSUMED 0700, PATIENT SLEEPING IN BED, HE GOT UP TO EAT BREAKFAST, HE IS ALERT AND ORIENTED X 2, CONFUSED, PATIENT CALM AND PLEASENT TODAY WITH CARE, TOOK HIS MEDICATION CRUSHED WITH PUDDING WITHOUT REFUSING, BREATH SOUND CLEAR, BOWEL SOUND ACTIVE OVER SOFT AND ROUNDED ABDOMEN, REG HR AUSCULTATED, RR EVEN NONLABORED ON RA, SKIN INTACT, NO NEW WOUND OBSERVED, PATIENT AMBULATE ON WALKER BUT WAS ABLE TO GET UP TODAY AND WALK TO THE REST ROOM WITH ONE ASSIST, PATIENT IS INCONTNENT SOME TIMES, HIS CALLED FOR UPDATE. PATIENT DENIES SI/HI, FALL PRECAUTION, WILL CONTINUE TO MONITOR PATIENT FOR SAFETY AND BEHAVIOR
[2020-10-27 19:35] VITALS: BP 129/70
[2020-10-27 19:44] VITALS: BP 129/70
--- NOTE | 2020-10-27 22:38 | NUR ---
Assumed care on 10/27/20 @ 1900, anxious and sits in chair then ambulates to yeny chair then in a few minutes ambulates back to the first chair with a fairly steady gait. Able to ambulate to the toilet, continent of bladder. Cough noted, Breath sounds clear after cough and course sounds noted prior to cough. ABD N x4Q over a soft abdomen. When asked how he feels, responds, I'M not in good shape. Able to understand patient's spoken word. Retired to bed @ HS, fall precautions in place, will continue to monitor for comfort and safety as per SB unit protocol.
[2020-10-28 07:46] VITALS: BP 140/66
--- NOTE | 2020-10-28 11:09 | NUR ---
DOLORES called Maryellen Hodges concerning the Pt. Pt's grandaughter, Jacqueline, answered the phone. Maryellen was in the background while DOLORES talked to Jacqueline directly. DOLORES asked about information given that Maryellen wanted the Pt to return home. Jacqueline confirmed this is Maryellen's wishes. DOLORES informed the Pt is able to be discharged today and finish quarantine in the home. The family agreed and asked what time he could be picked up. DOLORES informed that was up to the family. Maryellen stated between 3pm and 4pm. Jacqueline inquired about the Pt recieving treatment and coming back up to the [facility] floor. DOLORES informed that the Pt has recieved psychiatric treatment thoughout his entire stay at the hospital, Pt was only moved to SICU due to being COVID positive and a need for isolation. DOLORES informed Dr. Birch's plan to move the Pt back to the floor was to observe his behaviors out of isolation. However if the Pt will not be going to a facility this may not be necessary. Jacqueline showed understanding of this information. There were no further questions or concerns at this time. Discharge set for 10/28/2020 @ 1600. Family will provide transportation.
--- NOTE | 2020-10-28 14:14 | NUR ---
HAS HAD EPISODES OF RESTLESSNESS,MILD AGITATION-BECOMES AGITATED MOSTLY WHEN STAFF WILL MOT ALLOW HIM TO AMBULATE ON OWN OR LEAVE ROOM YELLING AT SLUNK SKIN CURER "I AM YOUR BOSS YOU ARN'T MINE" SPEECH IS MUMBLED DIFFICULT TO UNDERSTAND. GAIT UNSTEADY. ORIENTED TO PERSON-THIS AM DID KMOW WAS IN HOSPITAL. APPETITE FAIR. LUNGS CLEAR-NO COUGH OR SHORTNESS OF AIR NOTED.TAKES MEDS CRUSHED IN PUDDING-REPORT CALLED TO3 [facility] AND PT TO TRANSFER
--- NOTE | 2020-10-28 16:29 | NUR ---
DOLORES and Dr. Hernandez recieved a call from Jacqueline concerning the Pt's discharge. Jacqueline informed that she spoke with Dr. De La Cruz and was told the Pt could complete the quarantine in the hospital. Jacqueline was also concerned the Pt would not stay in his room at home to finish the quarantine. There was also concerns about the Pt not returning to the floor and the Pt needing LTC. DOLORES and Dr. Birch explained that hospitalization is not necessary to quarantine and the family requested the Pt to return to the home. Also that the recommendation for LTC was given to the family on several occassions however the DPOA has made the decision to bring the Pt home. Caregiver burden and burnout was discussed. DOLORES informed Jacqueline that although recommendations are given they cannot be enforced. Dr. Birch explained the critieria for in hospital and insurance coverage. During this phone call it was decided that the discharge would be moved to Saturday10/31/20. Pt will be discharge with home health. Pt has a follow up visit with Dr. De La Cruz scheduled for 11/03/2020 @ 1433
[2020-10-28 17:23] VITALS: BP 142/67
--- NOTE | 2020-10-28 17:36 | NUR ---
PT RECEIVED FROM [facility] VIA WHEELCHAIR AT APPROX 15:00. PT DROWSY AT THE TIME, SAFELY TRANSFERRED TO BED WITH 1 PERSON ASSIST. MOST RECENT VSS. PT DENIED SOB/DIFFICULTY BREATHING, APPEARED STABLE, IN NAD. PT HAS BEEN RESTING IN BED SINCE ARRIVAL TO UNIT, EYES CLOSED, RESPIRATIONS EVEN AND UNLABORED. PT CALM, NO SIGNS OF AGITATION, SLEEPING AT THIS TIME. SCHEDULED AFTERNOON HALDOL HELD. VALERIE FRANCIS AND RN CONTINING TO MONITOR PT.
[2020-10-28 19:53] VITALS: BP 111/71
[2020-10-29 04:23] VITALS: BP 101/56
--- NOTE | 2020-10-29 05:33 | NUR ---
PT MAKING PROGRESS TOWARDS GOALS. NO AGGRESSIVE BEHAVIOR NOTED. PT POORLY COOPERATIVE WITH DIRECTIONS BUT NOT RESISTIVE. GAIT IS POOR AND PT IS UNABLE TO RETAIN INSTRUCTION TO USE THE CALL LIGHT TO FOR ANY OUT OF BED NEEDS. BED ALARM IN PLACE.
[2020-10-29 07:17] VITALS: BP 121/50
[2020-10-29 15:10] VITALS: BP 124/65
[2020-10-29 20:26] VITALS: BP 146/50
[2020-10-29 21:30] VITALS: BP 146/50
--- NOTE | 2020-10-30 03:43 | NUR ---
10/29/20 Assumed care @ 2100 from Pastor MAKI. No agression noted by patient, unsteady rapid gait with significant instability noted. Gets up from bed with bed alarm set imulsively and without regard for personal safety. Does not use call light to call for assistance before exiting bed. High fall risk. Bed alarm set. Uses BSC to urinate x 3 as of this writing. voids yellow urine without difficulty. Assisted patient to call his and talk on the phone @ 2300 as per patient request. PRN trazadone provided and Acetamophen 650 mg for knee pain of 6/10. Patient also reports pain in his gluteal cleft from pressure sores. Cream applied, which patien indicated felt soothing. Cough noted, VSS Afebrile. Denies SI/HI Denies Anxiety and acknowledges depression. Reports is ready to go to [facility]lic[facility] Saturday morning and sit with . Verbal speach difficult to understand, soft volume and confused speach secondary to Dementia. Takes meds crushed in pudding, eats the remainder of the container of pudding or applesauce for a snack. Drinks Honey thick liquid, and is doing well drinking the applejuice and lemon water provided. Bed alarm set, bed in low position, call light within reach, education provided x2 on how to call for assistance before getting out of the bed. Will continue to monitor.
[2020-10-30 06:07] LABS: BASOPHILS 0.3 % (0.0-2.0); EOSINOPHILS 0.3 % (0.0-3.0); HEMATOCRIT 40.3 % (42.0-52.0); HEMOGLOBIN 13.7 gm/dL (14.0-18.0); LYMPHOCYTES 13.2 % (24.0-44.0); MCH 31.5 pg (26.0-34.0); MCHC 33.8 g/dL (28.0-37.0); MCV 93.1 fL (80.0-100.0); MONOCYTES 7.9 % (1.0-8.0); PLATELET COUNT 254 thou/uL (150-400); POLYS 78.3 % (36.0-66.0); RBC 4.33 mil/uL (4.50-6.00); RDW 14.3 % (10.5-14.5); WBC 5.1 thou/uL (4.0-11.0)
[2020-10-30 06:22] VITALS: BP 129/60
[2020-10-30 06:57] LABS: ALBUMIN 2.3 g/dL (3.4-5.0); CREATININE 0.7 mg/dL (0.7-1.3); POTASSIUM 3.8 mmol/L (3.5-5.1); TOTAL BILIRUBIN 0.5 mg/dL (0.2-1.0); TOTAL PROTEIN 5.9 g/dL (6.4-8.2)
[2020-10-30 19:35] VITALS: BP 128/54
--- NOTE | 2020-10-30 22:26 | NUR ---
ASSUMED PT CARE AT 1900.PT ALERT TO SELF/CONFUSED/FORGETFUL AND VERY IMPULSIVE.PT NOT COMPLIANT WITH FALL PREACUTIONS.PT NEEDS CONSTANT EDUCATION/REDIRECTION.PT UP WITH ASSIST X1 TO BSC.HS MEDS CRUSHED IN APPLESAUCE AND ADMINISTERED WITH HONEY THICK LIQUID.PT JARET WELL.HS SNACK PROVIDED.PT SPENT MOST OF HIS HS WATCHING THE FOOTBALL ON TV.FALL AND ISOLATION PREACUTIONS IN PLACE.CALL LIGHT WITHIN REACH.
[2020-10-31 07:34] VITALS: BP 122/65
[2020-10-31] MEDS ORDERED: FLOMAX0.4 MG PO (07:53)
[2020-10-31] MEDS ORDERED: PEPCID20 MG PO (07:53)
[2020-10-31] MEDS ORDERED: TRAZODONE HCL100 MG PO (07:53)
[2020-10-31] MEDS ORDERED: HALOPERIDOL 5 MG5 MG PO (07:53)
[2020-10-31] MEDS ORDERED: TRUSOPT OCUMETE10 ML OPHTHALMIC (07:53)
[2020-10-31] MEDS ORDERED: NORVASC5 MG PO (07:53)
[2020-10-31] MEDS ORDERED: COZAAR 25 MG TA25 M1 PO (07:53)
[2020-10-31] MEDS ORDERED: TIMOLOL MA0.25 %/52 OPHTHALMIC (07:53)
[2020-10-31] MEDS ORDERED: DEPAKOTE SPRIN125 MG PO (07:53)
[2020-10-31 08:22] VITALS: BP 122/65
--- NOTE | 2020-10-31 12:00 | NUR ---
SW faxed home health referrals to the following: [facility]
--- NOTE | 2020-10-31 12:49 | NUR ---
ASSUMED PATIENT CARE AT 0700. ALERT TO SELF. AMBULATED IN ROOM. NO DISTRESS NOTED WILL BE HERE AT 1300 TO ACTIVITIES MANAGER TO HOME WITH HH.
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
== END 2020-10-31 13:32 | disposition home health service (06) | DRG 56 ==
LOC: SBH 14:26 → 3W 14:26 → SBH 14:26 → SICU 10-21 18:12 → 3W 10-28 15:38
PROVIDERS: Family Medicine; Internal Medicine; Psychiatry & Neurology Psychiatry; ADMIT Psychiatry & Neurology Psychiatry; ATTEND Psychiatry & Neurology Psychiatry
DX: G30.9 Alzheimer's disease, unspecified (principal); F01.51 Vascular dementia, unspecified severity, with behavioral disturbance; U07.1 COVID-19; E43 Unspecified severe protein-calorie malnutrition; J12.82 Pneumonia due to coronavirus disease 2019; F02.81 Dementia in other diseases classified elsewhere, unspecified severity, with behavioral disturbance; E87.0 Hyperosmolality and hypernatremia; G25.71 Drug induced akathisia; M79.661 Pain in right lower leg; S00.81XA Abrasion of other part of head, initial encounter; W18.30XA Fall on same level, unspecified, initial encounter; R79.1 Abnormal coagulation profile; R13.10 Dysphagia, unspecified; Y92.238 Other place in hospital as the place of occurrence of the external cause; T38.0X5A Adverse effect of glucocorticoids and synthetic analogues, initial encounter; R26.9 Unspecified abnormalities of gait and mobility; I25.10 Atherosclerotic heart disease of native coronary artery without angina pectoris; I25.5 Ischemic cardiomyopathy; N40.0 Benign prostatic hyperplasia without lower urinary tract symptoms; I10 Essential (primary) hypertension; F29 Unspecified psychosis not due to a substance or known physiological condition; I48.0 Paroxysmal atrial fibrillation; K21.9 Gastro-esophageal reflux disease without esophagitis; Z90.79 Acquired absence of other genital organ(s); Z95.810 Presence of automatic (implantable) cardiac defibrillator; Z95.5 Presence of coronary angioplasty implant and graft; Z88.6 Allergy status to analgesic agent; Z79.899 Other long term (current) drug therapy; Z91.81 History of falling; Z68.21 Body mass index [BMI] 21.0-21.9, adult; Y93.89 Activity, other specified; Y99.8 Other external cause status
CPT/HCPCS: 10779; 10880